=== PATIENT | male | born 1990 | race Caucasian/White ===

== ENCOUNTER 2017-06-07 23:13 | Emergency (ER) | payer BC ==
[~2017-06-07] VITALS: Ht 188 cm; Wt 81.1 kg
[2017-06-08 00:54] VITALS: BP 103/67
== END 2017-06-08 00:55 | disposition home or self-care (01) ==
LOC: EME 23:13
DX: S06.0X0A Concussion without loss of consciousness, initial encounter (principal); W01.198A Fall on same level from slipping, tripping and stumbling with subsequent striking against other object, initial encounter
CPT/HCPCS: 99281; 99284